=== PATIENT | male | born 1995 | race African-American/Black ===

== ENCOUNTER 2018-12-01 13:20 | Day surgery (SDC) | payer OTHER ==
[~2018-12-01] VITALS: Ht 172.7 cm; Wt 64.4 kg
[2018-12-01 13:26] VITALS: Ht 172.7 cm; Wt 64.4 kg
--- NOTE | 2018-12-01 13:57 | NUR ---
BLOOD DRAW COMPLETED
[2018-12-01 14:17] LABS: BASOPHIL % 0.7 % (0-2); PLATELET COUNT 222 x10^3mcL (130-400)
--- NOTE | 2018-12-01 14:20 | NUR ---
PT TRANSPORTED TO OPS FOR PROCEDURE AAOX4 NO DISTRESS FAMILY ACCOMPANYING.
[2018-12-01 14:28] LABS: CALCIUM 8.7 mg/dL (8.5-10.1); CARBON DIOXIDE 30.1 mmol/L (21-32); CHLORIDE SERUM 105 mmol/L (98-107); CREATININE SERUM 1.1 mg/dL (0.7-1.3); GFR1 > 60 mL/min; GLUCOSE SERUM 90 mg/dL (74-106); SODIUM SERUM 143 mmol/L (136-145)
[2018-12-01 14:32] LABS: ALBUMIN 4.1 g/dL (3.4-5.0); ALKALINE PHOSPHATASE 103 U/L (46-116); ALT/SGPT 26 U/L (16-63); AST/SGOT 21 U/L (15-37); BILIRUBIN TOTAL 2.1 mg/dL (0.20-1.00)
[2018-12-01 14:38] LABS: TOTAL PROTEIN, SERUM 8.5 g/dL (6.4-8.2)
[2018-12-01 18:17] VITALS: BP 136/66
== END 2018-12-01 18:00 | disposition home or self-care (01) ==
LOC: ED 13:20 → DS 14:20 → MU 15:03 → ED 15:03 → DS 18:00
PROVIDERS: Emergency Medicine
DX: S52.292A Other fracture of shaft of left ulna, initial encounter for closed fracture (principal); S52.392A Other fracture of shaft of radius, left arm, initial encounter for closed fracture; X58.XXXA Exposure to other specified factors, initial encounter; Y93.89 Activity, other specified; Y92.89 Other specified places as the place of occurrence of the external cause; Y99.8 Other external cause status
CPT/HCPCS: J2250; J2405; J2704; J3010; J7120; Q0092